=== PATIENT | male | born 1950 | race Caucasian/White ===

== ENCOUNTER 2023-03-17 09:02 | Emergency (ER) | payer MEDICARE, MEDICAID, SELFPAY ==
[2023-03-17] VITALS (35 sets, daily range): BP systolic 112–134; BP diastolic 69–82; PULSE 62–90; RESP 12–25; TEMP 36.3; O2SAT 96–100
--- NOTE | ~2023-03-17 | CT_ITS ---
Non-contrast Head CT History: Seizure Technique: Axial non-contrast imaging of the brain was performed. Dose reduction technique was used on this scan by utilizing automated exposure control and iterative reconstruction technique. The dose -length product (DLP) was 681.00 mGy-cm. Findings: There is no evidence of intracranial hemorrhage, mass lesion, or acute infarct. Cerebellar atrophy noted. The ventricles and subarachnoid spaces are mildly dilated. The calvarium appears no rmal. The visualized paranasal sinuses and mastoid air cells are clear. Impression: No acute abnormality identified. Cerebellar atrophy. This can be related to chronic antiseizure medication. Probable mild generalized atrophy. Reviewed, dictated and finalized at location . AUDITOR Impression: No acute abnormality identified. Cerebellar atrophy. This can be related to chronic antiseizure medication. Probable mild generalized atrophy.
--- NOTE | ~2023-03-17 | XR_ITS ---
XR chest 1V DATE: 03/17/2023 09:53 INDICATION: Seizure TECHNIQUE: AP chest on 03/17/2023 at 0952 hours COMPARISON: None FINDINGS: There is mild elevation of the right leaf of the diaphragm. No pulmonary infiltrate or cons olidation, pleural effusion or pulmonary vascular congestion or pneumothorax is detected. Heart size is likely within normal range considering magnification associated with AP projection. The re is mild aortic unfolding. No hilar or mediastinal enlargement. Bilateral glenohumeral osteoarthritis. Thoracic and lumbar scoliosis. Osteopenia. IMPRESSION: No active cardiopulmonary disease Reviewed, dictated and finalized at location B. IAL EDUCATION SECRETARY
--- NOTE | 2023-03-17 09:28 | ED.SEIZURE ---
HPI - Seizure General Chief Complaint: Seizure Stated Complaint: Seizure Time Seen by Provider: 03/17/23 09:25 Source: patient Mode of arrival: ambulatory Limitations: no limitations History of Present Illness HPI Narrative: Irwin is a 72-year-old male patient presenting to the ER today via EMS with complaints of seizure activity. 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 Takes Tegretol 1000 mg daily. Patient had two seizures at his [facility] this morning. No medications were given per EMS. Patient is not postictal at this time and is alert oriented x3. He denies any headache, visual changes, or dizziness. He denies any pain at all at this time. Related Data Allergies Allergy/AdvReac Type Severity Reaction Status Date / Time No Known Allergies Allergy Verified 03/17/23 09:16 Review of Systems Review of Systems: Pertinent positives per HPI. Patient denies any fever, chills, rash, headache, visual changes, dizziness, cough, runny nose, sore throat, shortness of breath, chest pain, palpitations, nausea, vomiting, diarrhea, constipation, abdominal pain, or any urinary issues. PMFSH Comments At the time of my signature, I reviewed and agree with the nursing past medical, surgical, social, and family history. There is no relevant family history pertinent to the patient complaint. Exam Narrative: General: Well-developed, well nourished, in no apparent distress Head: Normocephalic, atraumatic, nontender to palpation Eyes: Pupils equally round and reactive to light bilaterally, EOM intact, sclera and conjunctive clear, no discharge, lids normal Ears: TMs intact and clear, ear canals clear, no drainage, grossly hearing normal. Nose: Nares patent, no discharge, no inflammation, no sinus tenderness. Mouth: Oropharynx without lesions or masses, good dentition, MMM. Tongue midline, even rise and fall of uvula Neck: Supple, trachea midline, no enlargement of anterior or posterior cervical nodes, no thyroid masses or goiter palpable. Cardio: Regular rate and rhythm, s1 and s2 normal, no murmur appreciated. Resp: Clear to auscultation bilaterally anteriorly and posteriorly, no rhonchi, rales, wheezing or rubs Musculoskeletal: No deformity, non-tender to palpation, grossly normal range of motion, muscle strength strong and equal, peripheral pulse strong, no edema, no cyanosis, normal gait and station Neuro: Alert and oriented x3 with slowed speech (normal for patient), no focal deficits, cranial nerves I through XII intact, muscle strength 3 out of 5, sensation intact bilaterally Course Course Emergency Course: Portions of this record may have been created with voice recognition software. Vital Signs Vital signs: Vital Signs Temperature 36.3 C L 03/17/23 09:02 Pulse Rate 83 03/17/23 09:02 Respiratory Rate 15 03/17/23 09:02 Blood Pressure 119/70 03/17/23 09:02 Pulse Oximetry 96 03/17/23 09:02 Oxygen Delivery Room Air 03/17/23 09:02 Temperature 36.3 C L 03/17/23 09:02 Pulse Rate 67 03/17/23 13:46 Respiratory Rate 14 03/17/23 13:46 Blood Pressure 127/75 03/17/23 13:46 Pulse Oximetry 100 03/17/23 13:16 Oxygen Delivery Room Air 03/17/23 09:14 Vital signs reviewed MDM - Seizure MDM Narrative Medical decision making narrative: At the time of visit patient is resting comfortably on the exam table. Patient appears to be nontoxic. EKG: EKG shows sinus rhythm heart rate 64 beats per minute with a incomplete bundle-branch block without ST elevation or depression. No T-wave inversion. Labs: White blood cell counts 9, H&H 11.2&34.8, platelet count 371, electrolytes-sodium level 140, potassium 4, chloride 104, BUN 27 with creatinine of 1, blood sugar was 120, liver function tests normal. UA turbid with 1+ protein, nitrate positive, 3+ leukocytes, greater than 100 white blood cells with 4+ bacteria. Tegretol level is pending
--- NOTE | 2023-03-17 09:29 | ECG_ITS ---
Measurements Intervals [place] Rate: 64 P: 56 PA: 204 QRS: -3 QRSD: 110 T: 17 QT: 405 QTc: 420 Interpretive Statements SINUS RHYTHM POSSIBLE LEFT ATRIAL ENLARGEMENT BORDERLINE AV CONDUCTION DELAY INCOMPLETE RIGHT BUNDLE BRANCH BLOCK LOW QRS VOLTAGE IN PRECORDIAL LEADS POOR R WAVE PROGRESSION, ANTERIOR LEADS BORDERLINE ECG NO PREVIOUS ECG AVAILABLE FOR COMPARISON Electronically Signed On 03-17-2023 10:30:34 INSURANCE CONSULTANT by Fransisco Culp D.O.
[2023-03-17 10:12] LABS: Basophils Percent Auto 0.3 % (0.2-1.2); Eosinophils Absolute Auto 0.2 K/mm3 (0-0.3); Eosinophils Percent Auto 2.7 % (0-4.4); Hematocrit 34.8 % (42.0-52.0); Hemoglobin 11.2 g/dL (14.0-18.0); Immature Granulocyte Absolute 0.06 K/mm3 (0.00-0.031); Immature Granulocyte Percent A 0.7 % (0-0.5); Lymphocytes Absolute Auto 1.21 K/mm3 (0.9-3.2); Lymphocytes Percent Auto 13.4 % (18.3-44.2); Mean Corpuscular HGB Conc 32.2 g/dl (32-36); Mean Corpuscular Hemoglobin 31.4 pg (26-34); Mean Corpuscular Volume 97.5 fl (80-100); Mean Platelet Volume 8.6 fl (7.4-10.4); Monocytes Absolute Auto 0.6 K/mm3 (0.1-0.6); Monocytes Percent Auto 7.1 % (2.6-8.5); Neutrophils Absolute Auto 6.8 K/mm3 (1.3-6.7); Neutrophils Percent Auto 75.8 % (45.5-73.1); Platelet Count Result 371 k/mm3 (150-375); Red Blood Count 3.57 M/mm3 (4.6-6.20); Red Cell Distribution Width 14.6 % (11.5-14.5)
[2023-03-17 10:24] LABS: Alanine Aminotransferase 22 U/L (6-50); Albumin Level 3.8 g/dL (3.5-5.1); Alkaline Phosphatase 120 U/L (38-126); Anion Gap 7 mmol/L (8-16); Aspartate Amino Transferase 23 U/L (17-59); Bilirubin,Total 0.2 mg/dL (0.2-1.3); Blood Urea Nitrogen 27 mg/dL (9-20); Calcium 8.9 mg/dL (8.4-10.2); Carbon Dioxide 29 mmol/L (22-30); Chloride 104 mmol/L (98-107); Estimated CRCL calculation 63 ml/min; Estimated Glomerular Filt Rate > 60; Glucose 120 mg/dL (65-110); Sodium 140 mmol/L (137-145)
--- NOTE | 2023-03-17 11:08 | PC.NURSE ---
Report given to Татьяна BUSH, all questions answered
[2023-03-17 11:31] LABS: Appearance Urine Turbid (Clear); Bacteria Urine 4+ /hpf; Bilirubin Urine Negative (Negative); Blood Urine Negative (Negative); Color Urine Yellow (Yellow); Glucose Urine UA Negative (Negative); Ketones Urine Negative (Negative); Leukocyte Esterase Ur 3+ LEU/UL (Negative); Nitrate Urine Positive (Negative); Non Pathogenic Casts 0-2; Protein Urine 1+ mg/dL (Negative); RBC Urine 0-2 /hpf (0-2); Specific Grav Ur 1.014 (1.001-1.035); Squamous Epithelial Cell Urine None seen /hpf (Few); Urobilinogen Urine 0.2 mg/dL (<2.0); WBC Urine >100 /hpf; pH Urine 8.5 (5.0-9.0)
[2023-03-17 11:32] LABS: Add Urine Microscopic? YES
[2023-03-20 14:59] LABS: Carbamazepine Tegretol 7.4 mcg/mL (4.0-12.0)
== END 2023-03-17 14:11 | disposition home or self-care (01) ==
PROVIDERS: Emergency Provider Nurse Practitioner Family
DX: G40.909 Epilepsy, unspecified, not intractable, without status epilepticus (principal); N30.01 Acute cystitis with hematuria
CPT/HCPCS: 36415; 70450; 71045; 80053; 80156; 81001; 85025; 87077; 87086; 87186; 93005; 99284

== ENCOUNTER 2023-04-30 12:06 | Emergency (ER) | payer MEDICARE, MEDICAID, SELFPAY ==
--- NOTE | ~2023-04-30 | XR_ITS ---
EXAMINATION: XR shoulder RT min 2V, XR humerus RT DATE: 04/30/2023 15:03 INDICATION: Right shoulder and upper arm pain and limited range of motion post fall 7 days prior TECHNIQUE: 1. AP internally and externally rotated, AP oblique externally rotated and transscapular Y views of t he right shoulder were obtained. 2. Internal and axillary rotated views of the right shoulder were obtained on overlapping proximal an d distal images. COMPARISON: None FINDINGS: Comminuted fractures of the distal right clavicle without evident extension to the acromioclavicular joint. The distal fragment remains normal alignment relative to the acromion with 1.5 cm cephalad dis placement of the clavicle medial to the fracture. Old fractures of the posterolateral right eighth, n inth and 10th ribs. No other fractures identified. Severe right glenohumeral osteoarthritis with remodeling of the humeral head and prominent hypertroph ic osteophytes and loose osteochondral bodies. The elbow joint is poorly profiled the profiled portio n of the ulnotrochlear joint space appears normal. Visualized portions of the right lung are clear. IMPRESSION: 1. Displaced comminuted fracture the distal right clavicle. 2. Severe osteoarthritis at the right glenohumeral joint. Reviewed, dictated and finalized at location A. ENTION RN IMPRESSION: 1. Displaced comminuted fracture the distal right clavicle. 2. Severe osteoarthritis at the right glenohumeral joint.
[2023-04-30 13:13] VITALS: BP 136/68; PULSE 68; RESP 20; TEMP 36.6; O2SAT 100
--- NOTE | 2023-04-30 16:05 | ED.FALL ---
HPI - Fall General Chief Complaint: Fall Stated Complaint: Fall Time Seen by Provider: 04/30/23 16:05 Source: patient Mode of arrival: ambulatory Limitations: no limitations History of Present Illness HPI Narrative: Irwin is a 72-year-old male patient presenting to the ER today with complaints of a ground level fall that occurred last week. Reports that he fell and injured his right shoulder. Patient lives and a group developmentally disabled home. He is brought into the ER today by [facility] Related Data Allergies Allergy/AdvReac Type Severity Reaction Status Date / Time No Known Allergies Allergy Verified 03/17/23 09:16 Review of Systems Review of Systems: Pertinent positives per HPI. Patient denies any fever, chills, rash, headache, visual changes, dizziness, cough, runny nose, sore throat, shortness of breath, chest pain, palpitations, nausea, vomiting, diarrhea, constipation, abdominal pain, or any urinary issues. PMFSH Comments At the time of my signature, I reviewed and agree with the nursing past medical, surgical, social, and family history. There is no relevant family history pertinent to the patient complaint. Exam Narrative: General: Well-developed, well nourished, in no apparent distress Head: Normocephalic, atraumatic. Cardio: Regular rate and rhythm, s1 and s2 normal, no murmur appreciated. Resp: Clear to auscultation bilaterally, no rhonchi, rales, wheezing or rubs. Musculoskeletal: No deformity, old bruising with mild swelling noted to the right shoulder, tender to palpation over the distal clavicle and proximal humerus, pain with any range of motion to the right shoulder, unable to raise shoulder above head, muscle strength strong and equal, peripheral pulse strong, no edema, no cyanosis, sitting in a wheelchair. Course Course Emergency Course: Portions of this record may have been created with voice recognition software. Vital Signs Vital signs: Vital Signs Temperature 36.6 C 04/30/23 13:13 Pulse Rate 68 04/30/23 13:13 Respiratory Rate 04/30/23 13:13 Blood Pressure 136/68 04/30/23 13:13 Pulse Oximetry 100 04/30/23 13:13 Oxygen Delivery Room Air 04/30/23 13:13 Temperature 36.6 C 04/30/23 13:13 Pulse Rate 68 02/15/24 13:13 Respiratory Rate 20 04/30/23 13:13 Blood Pressure 136/68 04/30/23 13:13 Pulse Oximetry 100 04/30/23 13:13 Oxygen Delivery Room Air 04/30/23 13:13 Vital signs reviewed MDM - Fall MDM Narrative Medical decision making narrative: At the time of visit patient is resting comfortably on the exam table. Patient appears to be nontoxic. Diagnostics: X-ray of the right humerus and shoulder were performed and shows a displaced comminuted fracture the distal right clavicle and severe osteoarthritis at the right glenohumeral joint. Plan: Contacted Dr. Mcadams regarding patient's x-rays and he feels as though he can see the patient as an outpatient and recommends shoulder immobilizer or sling. Arm sling was applied. Notified Adult Protective Service hotline as a manadated dance studio manager and was told to contact [facility] since patient is in a developmental penitentiary. Patient fell 1 week ago and was not brought in until today. Supportive measures were discussed with the patient/caregiver and they voiced understanding discharge instructions and agrees to treatment plan. Return precautions reviewed Differential Diagnosis Differential diagnosis: Likely dislocation of shoulder region and other (Clavicle fracture, humeral fracture, rotator cuff injury) Imaging Data Radiologist's impression: ITS Impressions Humerus X-Ray 04/30/23 15:05 IMPRESSION: 1. Displaced comminuted fracture the distal right clavicle. 2. Severe osteoarthritis at the right glenohumeral joint. Shoulder X-Ray 04/30/23 15:05
== END 2023-04-30 18:12 | disposition home or self-care (01) ==
PROVIDERS: Emergency Provider Nurse Practitioner Family; PCP Internal Medicine
DX: S42.031A Displaced fracture of lateral end of right clavicle, initial encounter for closed fracture (principal); M19.011 Primary osteoarthritis, right shoulder; W18.30XA Fall on same level, unspecified, initial encounter
CPT/HCPCS: 73030; 73060; 99284; A4565

== ENCOUNTER 2023-06-10 10:47 | Outpatient (CLI) | payer MEDICARE, MEDICAID, SELFPAY ==
--- NOTE | ~2023-06-10 | XR_ITS ---
XR clavicle RT 06/10/2023 11:08 Indication: Fracture of the right clavicle follow-up Procedure: 2 views right clavicle Comparison: 04/30/2023 Findings: Stable alignment of displaced comminuted extra-articular fracture distal aspect of the righ t clavicle. Severe right glenohumeral joint osteoarthritis. Impression: 1: Stable alignment of displaced extra-articular comminuted fracture distal aspect of the right clavi viviane. No significant callus formation. Reviewed, dictated and finalized at location B. Impression: 1: Stable alignment of displaced extra-articular comminuted fracture distal asp ect of the right clavicle. No significant callus formation.
== END 2023-06-10 10:48 | disposition home or self-care (01) ==
LOC: ANHIMG 10:50
PROVIDERS: PCP Internal Medicine; Visit Provider Orthopaedic Surgery
DX: S42.021A Displaced fracture of shaft of right clavicle, initial encounter for closed fracture (principal); X58.XXXA Exposure to other specified factors, initial encounter
CPT/HCPCS: 73000

== ENCOUNTER 2023-06-13 10:30 | Emergency (ER) | payer MEDICARE, MEDICAID, SELFPAY ==
--- NOTE | ~2023-06-13 | CT_ITS ---
EXAMINATION: CT brain wo con DATE: 06/13/2023 11:30 INDICATION: Fall. Head injury. Left forehead abrasion. TECHNIQUE: Computed tomography (CT) of the head was performed without intravenous contrast. The mA wa s adjusted according to patient size. Iterative reconstruction technique was employed. Exam dose: 60 5.33 mGy-cm total exam DLP. COMPARISON: 03/17/2023 CT brain FINDINGS: Prominent cerebellar atrophy moderately prominent cerebral atrophy are noted. No intracranial mass lesion or hemorrhage or cerebrovascular accident is detected. No midline shift o r mass effect effect. No subdural or epidural hematoma. There is a fluid level in the left maxillary sinus. The included paranasal sinuses are otherwise unre markable. The left mastoid air cells are clear. There are right mastoid effusions. No fracture or bone destruction of the cranial vault. IMPRESSION: No skull fracture or acute intracranial finding Air-fluid level of left maxillary sinus, new since 03/17/2023; if there is concern for possible facial fracture, consider CT maxillofacial scanning Reviewed, dictated and finalized at Location A. Reviewed, dictated and finalized at location A. IMPRESSION: No skull fracture or acute intracranial finding Air-fluid level of left maxillary sinus, new since 03/17/2023; if there is concer n for possible facial fracture, consider CT maxillofacial scanning
--- NOTE | ~2023-06-13 | CT_ITS ---
EXAMINATION: CT cervical spine wo con DATE: 06/13/2023 11:30 INDICATION: Fall. Left forehead abrasion. TECHNIQUE: Computed tomography (CT) of the cervical spine was performed without intravenous contrast. Automated exposure control and iterative reconstruction technique were employed. Exam dose: 386.35 mGy-cm total exam DLP. COMPARISON: None FINDINGS: There are right mastoid effusions. There is extensive soft tissue thickening at the externa l auditory canal on the left. There is reversal cervical curvature which may be due to muscle spasm. C1 and C2 are normally aligned and the odontoid process is intact. No fracture or dislocation or lock ed facet or prevertebral soft tissue swelling. There is 3 mm anterolisthesis at C2-3. There is moderately severe degenerative disc disease at C3-4 and to a greater extent C4-5, C5-6 and C 6-7, with very prominent anterior bridging osteophytes at C4-C7. There is 2.7 mm anterolisthesis at C7-T1. There is prominent degenerative change at the apophyseal joints IMPRESSION: Reversal cervical curvature which may be due to muscle spasm Severe cervical spondylosis; no fracture or dislocation or locked facet or prevertebral soft tissue s welling Reviewed, dictated and finalized at Location A. Reviewed, dictated and finalized at location A. IMPRESSION: Reversal cervical curvature which may be due to muscle spasm Severe cervical spondylosis; no fracture or dislocation or locked facet or prev ertebral soft tissue swelling
[2023-06-13 10:43] VITALS: BP 111/68; PULSE 62; RESP 20; TEMP 36.2; O2SAT 100
[2023-06-13] MEDS: TETANUS,DIPHTHERIA,AC PERTUSSIS ADULT (0.5 ML) BOOSTRIX IM (12:16)
--- NOTE | 2023-06-13 16:51 | ED.FALL ---
HPI - Fall General Chief Complaint: Fall Stated Complaint: fall Time Seen by Provider: 06/13/23 11:09 History of Present Illness HPI Narrative: Patient presents here after mechanical fall, he is denying any complaints at this time. Related Data Home Medications Medication Instructions Recorded Confirmed amlodipine 10 mg tablet 10 mg PO DAILY 05/07/23 06/10/23 ascorbic acid (vitamin C) 500 mg mg PO 05/07/23 06/10/23 capsule bacitracin 500 unit/gram topical 1 applic topical TID 05/07/23 06/10/23 ointment calcium carbonate 300 mg (750 mg) 300 mg PO BID 05/07/23 06/10/23 chewable tablet (Antacid Extra-Strength) carbamazepine 200 mg tablet 200 mg PO Q12H 05/07/23 06/10/23 dextromethorphan 5 mg-guaifenesin 20 ml PO Q4-6H PRN 05/07/23 06/10/23 50 mg/5 mL oral liquid (Robafen DM) diphenhydramine HCl 25 mg tablet 25 mg PO QHS PRN 05/07/23 06/10/23 (Banophen) ferrous sulfate 325 mg (65 mg 325 mg PO DAILY 05/07/23 06/10/23 iron) tablet folic acid 1 mg tablet 1 mg PO DAILY 05/07/23 06/10/23 hydrocortisone 1 % topical cream 1 applic topical BID PRN 05/07/23 06/10/23 ibuprofen 400 mg tablet 400 mg PO TID 05/07/23 06/10/23 lisinopril 5 mg tablet 5 mg PO DAILY 05/07/23 06/10/23 rasagiline 1 mg tablet 1 mg PO DAILY 05/07/23 06/10/23 simvastatin 20 mg tablet 20 mg PO DAILY 05/07/23 06/10/23 vitamin E (dl, acetate) 180 mg 180 mg PO DAILY 05/07/23 06/10/23 (400 unit) capsule Allergies Allergy/AdvReac Type Severity Reaction Status Date / Time No Known Allergies Allergy Verified 06/13/23 10:46 Review of Systems Review of Systems: All systems reviewed & are unremarkable except as noted in HPI and below PMFSH Social History Social History Smoking status: Unknown if ever smoked Do You Feel Safe in your Home?: Yes Lack of Transportation: No Lack of Food: Never True Current Housing: I Have Housing Concerned About Future Housing: No Difficulty Paying Gas/Electric Bills: No Difficulty Paying for Meds: No Currently Unemployed: No Education: High School Diploma/GED Difficulty w/ Childcare or Family Care: No Exam Narrative: EXAMINATION OF ORGAN SYSTEMS/BODY AREAS: Constitutional: Vital signs per nursing GENERAL:[No acute distress, non-toxic appearing.] HEAD: Abrasion to forehead EYES: EOMI, conjunctiva normal ENT: Hearing grossly intact LUNGS: Nonlabored breathing. HEART: [Regular rate and rhythm] ABD: [Soft], [nontender to palpation] EXT: right arm in sling SKIN: [No rashes or lesions.] NEURO: [Alert.] PSYCH: Normal affect Course Vital Signs Vital signs: Vital Signs Temperature 97.1 F L 06/13/23 10:43 Pulse Rate 62 06/13/23 10:43 Respiratory Rate 20 06/13/23 10:43 Blood Pressure 111/68 06/13/23 10:43 Pulse Oximetry 100 06/13/23 10:43 Oxygen Delivery Room Air 06/13/23 10:43 Temperature 97.1 F L 06/13/23 10:43 Pulse Rate 62 06/13/23 10:43 Respiratory Rate 20 06/13/23 10:43 Blood Pressure 111/68 06/13/23 10:43 Pulse Oximetry 100 06/13/23 10:43 Oxygen Delivery Room Air 06/13/23 10:43 MDM - Fall MDM Narrative Medical decision making narrative: patient presents here after witnessed mechanical fall, he has no complaints, he is at his baseline currently, has a small abrasion, given his age I did obtain a CT head and C-spine which I thankfully negative for acute abnormality. I do feel he is stable for discharge at this time with return precautions. Discharge Plan Discharge Clinical Impression: Fall Patient Disposition: NH Nursing Home/Asst Living Condition: Stable Instructions: Antibiotic Form, Head Injury (ED), Abrasion (ED) Additional Instructions: Please follow-up with your primary care doctor, you can always return to the ER if you feel worse. Prescriptions: No Action amlodipine 10 mg tablet 10 mg PO DAILY Antacid Extra-Strength 300 m
== END 2023-06-13 12:27 ==
PROVIDERS: Emergency Provider Emergency Medicine; PCP Internal Medicine
DX: Z04.3 Encounter for examination and observation following other accident (principal); Z23 Encounter for immunization
CPT/HCPCS: 70450; 72125; 90471; 90715; 99284

== ENCOUNTER 2023-07-15 10:46 | Outpatient (CLI) | payer MEDICARE, MEDICAID, SELFPAY ==
--- NOTE | ~2023-07-15 | XR_ITS ---
2 views of the right clavicle CLINICAL HISTORY: Fracture COMPARISON: 06/10/2023 There is oblique fracture of the distal clavicle, with inferior displacement distal fracture fragment by approximately 2 cm, similar in alignment to prior exam. There is advanced degenerative change of the glenohumeral joint. AC joint intact otherwise. Soft tissues are unremarkable. IMPRESSION: Stable significant displaced oblique fracture of the distal clavicle since prior exam. Severe glenohumeral joint degenerative change. Reviewed, dictated and finalized at location . IMPRESSION: Stable significant displaced oblique fracture of the distal clavicle since prio r exam. Severe glenohumeral joint degenerative change.
== END 2023-07-15 10:47 | disposition home or self-care (01) ==
PROVIDERS: PCP Internal Medicine; Visit Provider Orthopaedic Surgery
DX: M19.011 Primary osteoarthritis, right shoulder (principal); S42.001A Fracture of unspecified part of right clavicle, initial encounter for closed fracture; X58.XXXA Exposure to other specified factors, initial encounter
CPT/HCPCS: 73000

== ENCOUNTER 2023-07-22 11:54 | Emergency (ER) | payer MEDICARE, MEDICAID, SELFPAY ==
[2023-07-22 12:32] VITALS: BP 120/84; PULSE 65; RESP 18; TEMP 36.9; O2SAT 100
--- NOTE | 2023-07-22 13:15 | ED.MALEGU ---
HPI - Male Genitourinary General Chief complaint: Urogenital-Male Stated complaint: ?hematuria Time Seen by Provider: 07/22/23 13:15 History of Present Illness HPI Narrative: Patient is a 72 year old male here from [facility] with care worker here with concerns of hematuria. History assisted from caregiver at bedside. Patient denies hematuria, denies dysuria, denies any pain. Careworker yesterday reportedly saw some hematuria. Patient was changed by careworker who is at bedside this morning and she noted no hematuria. Patient denies hematuria himself. Patient initially refused transfer to the ER however caregiver was advised to bring him into the ED for evaluation. Related Data Home Medications Medication Instructions Recorded Confirmed amlodipine 10 mg tablet 10 mg PO DAILY 05/07/23 07/15/23 ascorbic acid (vitamin C) 500 mg mg PO 05/07/23 07/15/23 capsule bacitracin 500 unit/gram topical 1 applic topical TID 05/07/23 07/15/23 ointment calcium carbonate (Antacid 300 mg PO BID 05/07/23 07/15/23 Extra-Strength) carbamazepine 200 mg tablet 200 mg PO Q12H 05/07/23 07/15/23 dextromethorphan 5 mg-guaifenesin 20 ml PO Q4-6H PRN 05/07/23 07/15/23 50 mg/5 mL oral liquid (Robafen DM) diphenhydramine HCl 25 mg tablet 25 mg PO QHS PRN 05/07/23 07/15/23 (Banophen) ferrous sulfate 325 mg (65 mg 325 mg PO DAILY 05/07/23 07/15/23 iron) tablet folic acid 1 mg tablet 1 mg PO DAILY 05/07/23 07/15/23 hydrocortisone 1 % topical cream 1 applic topical BID PRN 05/07/23 07/15/23 ibuprofen 400 mg tablet 400 mg PO TID 05/07/23 07/15/23 lisinopril 5 mg tablet 5 mg PO DAILY 05/07/23 07/15/23 rasagiline 1 mg tablet 1 mg PO DAILY 05/07/23 07/15/23 simvastatin 20 mg tablet 20 mg PO DAILY 05/07/23 07/15/23 vitamin E (dl, acetate) 180 mg 180 mg PO DAILY 05/07/23 07/15/23 (400 unit) capsule Allergies Allergy/AdvReac Type Severity Reaction Status Date / Time No Known Allergies Allergy Verified 06/13/23 10:46 Review of Systems Review of Systems: All systems reviewed & are unremarkable except as noted in HPI and below PMFSH Social History Social History Smoking status: Unknown if ever smoked Do You Feel Safe in your Home?: Yes Lack of Transportation: No Lack of Food: Never True Current Housing: I Have Housing Concerned About Future Housing: No Difficulty Paying Gas/Electric Bills: No Difficulty Paying for Meds: No Currently Unemployed: No Education: High School Diploma/GED Difficulty w/ Childcare or Family Care: No Exam Narrative: GENERAL: Well-appearing, well-nourished, and in no acute distress. HEAD: Normocephalic, atraumatic. EYES: PERRLA and EOMI. ENT: Nares clear. Mucous membranes moist. NECK: Supple. CHEST: Clear to auscultation. No respiratory distress. HEART: Regular rate and rhythm. Normal peripheral pulses. ABDOMEN: Soft, nontender, nondistended. EXTREMITIES: Normal range of motion. No edema. SKIN: Warm, dry, no rash. NEURO: No focal deficits. Alert and oriented x2, at his baseline. PSYCH: Normal mood and affect. Course Course Emergency Course: Chart review performed. Patient here with hematuria. Triage vitals normal. Patient seen and evaluated, has no complaints, denies hematuria. Caregiver at bedside is reluctant to be here, advises patient does not want to be here and that they saw no hematuria this morning when they changed him. Given lack of additional symptoms will do UA. Anticipate discharge. UA shows 51-100 white blood cells, no bacteria, no blood, 2+ leukocyte esterase. Will start on keflex for suspected UTI. The results of pertinent diagnostic studies and exam findings were discussed. The patient?s provisional diagnosis and plan of care were discussed with the patient and present family. The patient and/or present family expressed understanding of the diagnosis and plan. The nurse was instructed to provide wr
[2023-07-22 14:08] LABS: Appearance Urine Clear (Clear); Bacteria Urine None Seen /hpf; Bilirubin Urine Negative (Negative); Blood Urine Negative (Negative); Color Urine Yellow (Yellow); Glucose Urine UA Negative (Negative); Ketones Urine Negative (Negative); Leukocyte Esterase Ur 2+ LEU/UL (Negative); Nitrate Urine Negative (Negative); Non Pathogenic Casts 0-2; Protein Urine Trace mg/dL (Negative); RBC Urine 0-2 /hpf (0-2); Specific Grav Ur 1.015 (1.001-1.035); Squamous Epithelial Cell Urine None Seen /hpf (Few); Urobilinogen Urine 0.2 mg/dL (<2.0); WBC Urine 51-100 /hpf (0-3); pH Urine 7.5 (5.0-9.0)
[2023-07-22 14:14] LABS: Add Urine Microscopic? YES
[2023-07-22 14:52] VITALS: BP 126/69; PULSE 74; RESP 16; TEMP 37; O2SAT 99
== END 2023-07-22 14:53 ==
PROVIDERS: Emergency Provider Student in an Organized Health Care Education/Training Program; PCP Internal Medicine
DX: N39.0 Urinary tract infection, site not specified (principal)
CPT/HCPCS: 81001; 87077; 87086; 87088; 87186; 99283

== ENCOUNTER 2023-12-12 10:44 | Emergency (ER) | payer MEDICARE, MEDICAID, SELFPAY ==
--- NOTE | ~2023-12-12 | CT_ITS ---
EXAMINATION: CT facial & cervical spine wo DATE: 12/12/2023 11:17 INDICATION: Status post fall. Facial and neck pain. TECHNIQUE: Computed tomography (CT) of the maxillofacial region and cervical spine was performed with out intravenous contrast. The dose-length product (DLP) was 413.56 mGy-cm. Automated exposure control and iterative reconstruction technique were employed. COMPARISON: None FINDINGS: MAXILLOFACIAL CT: Mild mucosal thickening of the maxillary sinuses. Rightward nasal septal deviation. Mild degenerative changes of the temporomandibular joints. No orbital fractures. CERVICAL SPINE CT: There is reversal of cervical lordosis. There is degenerative anterolisthesis at C2-3 and C7-T1 secon pao to facet hypertrophy. There is disc narrowing at all cervical spine levels with prominent ventra l osteophytes at C3-4 through C6-7. There is severe multilevel uncinate and facet hypertrophy. Odonto id process is normal craniovertebral junction within normal limits. No evidence for perched facet. IMPRESSION: 1. Severe cervical spondylosis. No acute fracture. Reviewed, dictated and finalized at location B.
--- NOTE | ~2023-12-12 | CT_ITS ---
EXAMINATION: CT brain wo con DATE: 12/12/2023 11:17 INDICATION: Status post fall. Head injury. TECHNIQUE: Computed tomography (CT) of the head was performed without intravenous contrast. The dose- length product was 605.33 mGy-cm. Automated exposure control and iterative reconstruction technique w ere employed. COMPARISON: CT dated 06/13/2023 FINDINGS: Generalized atrophy. Prominent cisterna magna. Cerebellar atrophy. Chronic right cerebellar infarction. There is intracranial atherosclerosis. No acute infarction, mass or mass effect. Paranas al sinuses and mastoids are pneumatized. IMPRESSION: 1. No acute intracranial abnormality. Reviewed, dictated and finalized at location B.
[2023-12-12 11:23] VITALS: BP 133/75; PULSE 66; RESP 17; TEMP 37.1; O2SAT 96
--- NOTE | 2023-12-12 11:23 | ED.GENADULT ---
HPI - General Adult General Chief complaint: Head Injury Stated complaint: fall out of wheelchair Time Seen by Provider: 12/12/23 11:03 History of Present Illness HPI narrative: 73-year-old male present to the emergency department for evaluation for a fall from his wheelchair. Patient does have a laceration to his forehead but denies any pain or injury. Patient is A&O x1 at baseline. Patient does has have history Parkinson's disease. Patient arrives to the emergency department with his caregiver. Caregiver states this is his normal baseline. Caregiver did confirm that the patient did have a fall from his wheelchair. Related Data Home Medications Medication Instructions Recorded Confirmed amlodipine 10 mg tablet 10 mg PO DAILY 05/07/23 07/15/23 ascorbic acid (vitamin C) 500 mg mg PO 05/07/23 07/15/23 capsule bacitracin 500 unit/gram topical 1 applic topical TID 05/07/23 07/15/23 ointment calcium carbonate (Antacid 300 mg PO BID 05/07/23 07/15/23 Extra-Strength) carbamazepine 200 mg tablet 200 mg PO Q12H 05/07/23 07/15/23 dextromethorphan 5 mg-guaifenesin 20 ml PO Q4-6H PRN 05/07/23 07/15/23 50 mg/5 mL oral liquid (Robafen DM) diphenhydramine HCl 25 mg tablet 25 mg PO QHS PRN 05/07/23 07/15/23 (Banophen) ferrous sulfate 325 mg (65 mg 325 mg PO DAILY 05/07/23 07/15/23 iron) tablet folic acid 1 mg tablet 1 mg PO DAILY 05/07/23 07/15/23 hydrocortisone 1 % topical cream 1 applic topical BID PRN 05/07/23 07/15/23 ibuprofen 400 mg tablet 400 mg PO TID 05/07/23 07/15/23 lisinopril 5 mg tablet 5 mg PO DAILY 05/07/23 07/15/23 rasagiline 1 mg tablet 1 mg PO DAILY 05/07/23 07/15/23 simvastatin 20 mg tablet 20 mg PO DAILY 05/07/23 07/15/23 vitamin E (dl, acetate) 180 mg 180 mg PO DAILY 05/07/23 07/15/23 (400 unit) capsule Allergies Allergy/AdvReac Type Severity Reaction Status Date / Time No Known Allergies Allergy Verified 12/12/23 10:45 Review of Systems Review of Systems: All systems reviewed & are unremarkable except as noted in HPI and below PMFSH Social History Social History (Reviewed 06/10/23 @ 13:32 by Yolanda Hewitt [facility]) Smoking status: Unknown if ever smoked Do You Feel Safe in your Home?: Yes Lack of Transportation: No Lack of Food: Never True Current Housing: I Have Housing Concerned About Future Housing: No Difficulty Paying Gas/Electric Bills: No Difficulty Paying for Meds: No Currently Unemployed: No Education: High School Diploma/GED Difficulty w/ Childcare or Family Care: No Exam Narrative: APPEARANCE: Well appearing, no pain, no distress, well-nourished. HEAD: normocephalic, 3 cm laceration to the center of forehead. EYES: PERRLA/EOMI, conjunctivae clear. NOSE: Normal no drainage EARS:TMS clear with good light reflex. THROAT: Pharynx clear, no exudate. NECK: Supple. No adenopathy, no masses. RESPIRATORY: Airway patent, respirations nonlabored. Clear to auscultation bilaterally, no rales, rhonchi, wheezing. CARDIOVASCULAR: Regular rate and rhythm without murmurs rubs or gallops. ABDOMINAL: Soft, nontender, nondistended, normal bowel sounds MUSCULOSKELETAL: Moves all extremities. Strength/ROM intact, No edema, No calf tenderness. NEURO: Alert. Cranial nerves II through XII intact. Good gait. Good coordination SKIN: Forehead laceration Course Course Emergency Course: Laceration was repaired and patient was discharged back to his care facility. Vital Signs Vital signs: Vital Signs Temperature 98.7 F 12/12/23 11:23 Pulse Rate 66 12/12/23 11:23 Respiratory Rate 17 12/12/23 11:23 Blood Pressure 133/75 12/12/23 11:23 Pulse Oximetry 96 12/12/23 11:23 Oxygen Delivery Room Air 12/12/23 11:23 Temperature 98.7 F 12/12/23 12:37 Pulse Rate 75 12/12/23 12:34 Respiratory Rate 18 12/12/23 12:34 Blood Pressure 133/75 12/12/23 11:23 Pulse Oximetry 100 12/12/23 12:35 Oxygen Delivery Room Air 12/12/23 12:35
[2023-12-12] MEDS: TETANUS,DIPHTHERIA,AC PERTUSSIS ADULT (0.5 ML) BOOSTRIX IM (12:22)
[2023-12-12 12:34] VITALS: PULSE 75; RESP 18; TEMP 36.9; O2SAT 100
[2023-12-12 12:35] VITALS: O2SAT 100
[2023-12-12 12:37] VITALS: TEMP 37.1
== END 2023-12-12 12:21 ==
PROVIDERS: Emergency Provider Emergency Medicine; PCP Internal Medicine
DX: S01.81XA Laceration without foreign body of other part of head, initial encounter (principal); Z23 Encounter for immunization; G20.A1 Parkinson's disease without dyskinesia, without mention of fluctuations; W05.0XXA Fall from non-moving wheelchair, initial encounter
CPT/HCPCS: 12013; 70450; 70486; 72125; 90471; 90715; 99284

== ENCOUNTER 2024-05-09 19:18 | Emergency (ER) | payer MEDICARE, MEDICAID, SELFPAY ==
--- NOTE | ~2024-05-09 | US_ITS ---
Duplex Sonography of the right extremity: Indication: DVT Findings: Sagittal and transverse B-mode images as well as color-flow imaging were performed on the r ight femoral and popliteal veins. B-mode examination was done without and with compression in the tr ansverse plane. There is good visualization of the common femoral, proximal profunda femoral, superf icial femoral, greater saphenous, and popliteal veins. Normal flow was seen on color-flow imaging. N ormal compressibility was demonstrated. Visualized calf veins are also patent. Impression: No evidence of deep vein thrombosis involving the right lower extremity. Reviewed, dictated and finalized at location M. T ROCK HANGER Impression: No evidence of deep vein thrombosis involving the right lower extremity.
--- OUTSIDE RECORDS SUMMARY | 2024-05-09 19:25 | XMS_ITS | Encounter Summary ---
Author Organization [facility] Address [address] [place] [address] Phone Care Team Providers Care Chief Scientist Name Role Phone Mariya Mcnair PAC Primary Care Pro vider Essence Wallace LEADERSHIP PROGRAM ASSOCIATE, COTA Unavailable + [phone] Sourav Hamm MD Unavailable [phone] Reason for Visit * Reason Onset Date Comments Home Health Admission 04/15/2023 Encounter Details Date Type Department Care Team (Late st Contact Info) Description 04/15/2023 Telephone [facility] [address] [place] [address] Zunilda Up, PT [place] Home Health Admission Social History Tobacco Use Types Packs/Day Years Used Date Smoking Tobacco: Never Smokeless Tobacco: Never Alcohol Use Standard Drinks/Week Comments Not Currently 0 (1 standard drink = 0.6 oz pur e alcohol) Sexually Active Control Partners Comments Not Currently Sex and Gender Information Value Date Recorded Sex Assigned at Not on file Legal Sex Male 10:29 AM GROUND OPERATIONS SUPERVISOR Gender Identity Not on file Sexual Orientation Not on file documented as of this encounter Miscellaneous Notes * Telephone Encounter - Zunilda Up, PT - 04/15/2023 4:10 PM CST Patient was admitted to home health on this date. Will you please follow and sign orders for PT/OT? Please advise. [place] OPERATIONS SUPERVISOR documented in this encounter Plan of Treatment Upcoming Encounters Date Type Department Care Team (Late st Contact Info) Description 06/15/2024 1:45 PM CDT Office Visit [facility] Medical [facility] - Internal Medicine - [place] [address] [id number] Mariya Mcnair, PAC [address] [facility] [place] [address] 02/23/2025 10:00 AM GROUND OPERATIONS SUPERVISOR Office Visit [facility] Neurology [facility] [address] [facility] [place] [address] Essence Wallace APRN, COTA [address] [place] [address] documented as of this encounter Visit Diagnoses Not on filedocumented in this encounter Care Teams Chief Scientist Relationship Specialty Start Date End Date Mariya Mcnair, PAC [address] [place] [address] PCP - General Physician Retail Associate 02/26/23 Essence Wallace APRN, COTA [address] [place] [address] Nurse Practitioner Advanced Practice Nurse 05/26/23 Sourav Hamm MD [address] [place] [address] Consulting Physician Neurology 02/25/24 documented as of this encounter
--- OUTSIDE RECORDS SUMMARY | 2024-05-09 19:25 | XMS_ITS | Clinical Summary ---
Author Organization [facility] Address [address] [place] [address] Care Team Providers Care Pipe Recovery Specialist Name Role Phone Mariya Mcnair Primary Care Pro vider Essence Wallace APRN, FIELD ARTILLERY OFFICER Unavailable [phone] Sourav Hamm MD Unavailable [phone] Allergies No known active allergies Medications amLODIPine (NORVASC) 10 MG Tablet Take 1 Tablet by mouth daily. 6 Active ferrous sulfate 325 (65 Fe) MG Tablet Take 1 Tablet by mouth 2 times daily. 2 Active folic acid (FOLVITE) 1 MG Tablet Take 1 Tablet by mouth daily. 6 Active lisinopril (PRINIVIL, ZESTRIL) 5 MG Tablet Take 1 Tablet by mouth daily. 6 Active polyethylene glycol (GLYCOLAX) 17 GM/SCOOP Powder Take 17 g by mouth. 2 Active rasagiline mesylate (AZILECT) 1 MG Tablet Take 1 Tablet by mouth daily. 6 Active simvastatin (ZOCOR) 20 MG Tablet Take 20 mg by mouth. 2 Active Ascorbic Acid (VITAMIN C PO) Take 500 mg by mouth daily. Active VITAMIN E PO Take 180 mg by mouth daily. Active calcium carbonate (Tums Extra Strength 750) 750 MG Chewable Tablet Take 750 mg by mouth daily. Active Cholecalciferol (Vitamin D) 50 MCG (2000 UT) Capsule Take one capsule by mouth daily 90 Capsule 4 Active Additional Information Patient not taking.Reported on 02/25/2024 ascorbic acid 500 MG Tablet Take 1 Tablet by mouth daily. 30 Tablet 4 Active Additional Information Patient not taking.Reported on 02/25/2024 diphenhydrAMINE (Banophen) 25 MG Tablet Take 25 mg by mouth every 6 hours as needed. Active Misc. Devices Misc Supply and instructions: 1 Each Active ibuprofen (MOTRIN) 400 MG Tablet Take 1 Tablet by mouth 2 times daily as needed for Mild or more severe pain. 60 Tablet 6 4 Active Additional Information Patient not taking.Reported on 02/25/2024 cephALEXin (KEFLEX) 500 MG Capsule Take 500 mg by mouth 4 times daily. RX [id number] Active carBAMazepine (TEGretol) 200 MG Tablet Take 1.5 Tablets by mouth 2 times daily. 360 Tablet 1 4 Active Active Problems Problem Noted Date Diagnosed Date Iron deficiency anemia 02/23/2023 Other hyperlipidemia 02/23/2023 Intellectual disability 02/23/2023 Parkinson disease 02/23/2023 Seizures 02/23/2023 Primary hypertension 02/23/2023 Osteoporosis 02/23/2023 Encounters Date Type Department Care Team Description 02/25/2024 10:00 AM CLEANER Office Visit [facility] Neurology [facility] [address] [place] [address] Sourav Hamm MD Seizures (HCC) (Primary Dx); Parkinson's disease without dyskinesia or fluctuating manifestations (HCC); Primary hypertension; Intellectual disability Discharge Disposition: Discharged to home or Selfcare 02/25/2024 Travel from Last 3 Months Social History Tobacco Use Types Packs/Day Years Used Date Smoking Tobacco: Never Smokeless Tobacco: Never Tobacco Cessation:Counseling Given: No Alcohol Use Standard Drinks/Week Comments Not Currently 0 (1 standard drink = 0.6 oz pur e alcohol) Sexually Active Control Partners Comments Not Currently Sex and Gender Information Value Date Recorded Sex Assigned at Not on file Legal Sex Male 10:29 AM CLEANER Gender Identity Not on file Sexual Orientation Not on file Last Filed Vital Signs Vital Sign Reading Time Taken Comments Blood Pressure 128/78 02/25/2024 10:14 AM CLEANER Pulse 67 02/25/2024 10:14 AM CLEANER Temperature 36.4 C (97.5 F) 02/25/2024 10:14 AM CLEANER Respiratory Rate 16 02/25/2024 10:14 AM CLEANER Oxygen Saturation 100% 02/25/2024 10:14 AM CLEANER Inhaled Oxygen Concentration - - Weight 84.4 kg (186 lb) 02/25/2024 10:14 AM CLEANER Height 172.7 cm (5' 8 ) 02/25/2024 10:14 AM CLEANER Body Mass Index 28.28 02/25/2024 10:14 AM CLEANER Plan of Treatment Upcoming Encounters Date Type Department Care Team (Late st Contact Info) Description 06/15/2024 1:45 PM CDT Office Visit [facility] - Internal Medicine - [place] [address] [place] [address] Mariya Mcnair, PAC [address] [place] [address] 02/23/2025 10:00 AM CLEANER Office Visit [facility] Medical [facility] - Neurology - [place] [address] [place] [address] Essence Wallace, REFRIGERATION SYSTEM INSTALLER, FIELD ARTILLERY OFFICER [address] [place] [address] Health Maintenance Due Date Last Done Comments Hepatitis C Virus (HCV) Screening 1950 Colonoscopy 09/08/1995 Immunochemical Fecal Occult Blood 2000 Pneumococcal Immunization (50+ years) (1 of 1 - PCV) 2000 Zoster Immunization (1 of 2) 2000 Colorectal Cancer Screening 03/06/2023 SARS-COV-2 Immunization ( - season) 2024 01/11/2024, 06/12/2022, 05/21/2022 Respiratory Syncytial Virus (RSV) Immunization (Adult) (1 - 1-dose 75+ series) 2025 Cologuard 03/05/2026 03/05/2023 DTaP/Tdap/Td Immunization Discontinued 2023, 06/13/2023, 08/05/2022, Additional history exists TdaP Immunization Completed 12/12/2023, , 08/05/2022, Additional history exists Influenza Immunization Completed 01/11/2024 PSA Discussion Discontinued 04/05/2024, 04/05/2024 Hepatitis B Immunization Aged Out No longer eligible based on patient's age to complete this topic Meningococcal Immunization (ACWY) Aged Out No longer eligible based on patient's age to complete this topic Rotavirus Immunization Aged Out No lo nger eligible based on patient's age to complete this topic Procedures Procedure Name Priority Date/Time Associated Diagnosis Comments PSA SCREEN 04/05/2024 12:00 AM CLEANER PSA FREE & TOTAL 04/05/2024 12:0 0 AM CLEANER LIPID PANEL 04/05/2024 12:00 AM CLEANER THYROID STIMULATING HORMONE (TSH) 04/05/2024 12:00 AM CLEANER CMP (COMPREHENSIVE METABOLIC PANEL) 04/05/2024 12:00 AM CLEANER COMPLETE BLOOD COUNT (CBC) WITH DIFF 04/05/2024 12:00 AM CLEANER COLOGUARD Routine 03/05/2023 8:10 AM CLEANER Screening for colon cancer from Last 3 Months or Most Recently Relevant to Health Maintenance Results * THYROID STIMULATING HORMONE (TSH) (04/05/2024 12:00 AM CLEANER) 04/05/2024 us Provider Scan CHEMISTRY ORDERABLES Final Resul t SCAN * PSA FREE & TOTAL (04/05/2024 12:00 AM CLEANER) Prostatic Specific Antigen, Free 1.8 SCAN 04/05/2024 us Provider Scan CHEMISTRY ORDERABLES Final Resul t SCAN * PSA SCREEN (04/05/2024 12:00 AM CLEANER) PSA SCREEN, TOTAL 1.8 SCAN 04/05/2024 us Provider Scan CHEMISTRY ORDERABLES Final Resul t Performing Organization Address City/[facility] Co de Phone Number SCAN * LIPID PANEL (04/05/2024 12:00 AM CLEANER) [facility] CHOLESTEROL 134 SCAN HDL CHOLESTEROL 53 SCAN LDL 66 SCAN 04/05/2024 us Provider Scan CHEMISTRY ORDERABLES Final Resul t Performing Organization Address City/[facility]/ZIP Co de Phone Number SCAN * CMP (COMPREHENSIVE METABOLIC PANEL) (04/05/2024 12:00 AM CLEANER) 04/05/2024 us Provider Scan CHEMISTRY ORDERABLES Final Resul t SCAN * COMPLETE BLOOD COUNT (CBC) WITH DIFF (04/05/2024 12:00 AM CLEANER) 04/05/2024 us Provider Scan HEMATOLOGY ORDERABLES Final Resu lt Performing Organization Address [facility] Co de Phone Number SCAN * COLOGUARD (03/05/2023 8:10 AM CLEANER) [facility] Cologuard Negative Negative [facility] Comment: NEGATIVE TEST RESULT. A negative Cologuard result indicates a low likelihood that a colorectal cancer (CRC) or advanced adenoma (adenomatous polyps with more advanced pre-malignant features) is present. The chance that a person with a negative Cologuard test has a colorectal cancer is less than 1 in 1500 (negative predictive value >99.9%) or has an advanced adenoma is less than 5.3% (negative predictive value 94.7%). These data are based on a prospective cross-sectional study of 10,000 individuals at average risk for colorectal cancer who were screened with both Cologuard and colonoscopy. (Melanie Kraft. ryan al, N Engl J Med 2014;370(14):6986-5290) The normal value (reference range) for this assay is negative. COLOGUARD RE-SCREENING RECOMMENDATION: Periodic colorectal cancer screening is an important part of preventive healthcare for asymptomatic individuals at average risk for colorectal cancer. Following a negative Cologuard result, the [place] [employer] Society and U.S. Multi-Society Task Force screening guidelines recommend a Cologuard re-screening interval of 3 years. References: [place] [employer] Guideline for Colorectal Cancer Screening: https://www.cancer.org/cancer/matyg-pstlnw-jozeek/cpgnnebog-dhpykjbvs-sakincj/ acs-recommendations.html.; Manjinder CURIEL, Sandy BONILLA, Fabrizio BettencourtK, Colorectal Cancer Screening: Recommendations for Physicians and Patients from the U.S. Multi-Society Task Force on Colorectal Cancer Screening , Am J Gastroenterology 2017; 112:7427-8419. TEST DESCRIPTION: Composite algorithmic analysis of stool DNA-biomarkers with hemoglobin immunoassay. Quantitative values of individual biomarkers are not reportable and are not associated with individual biomarker result reference ranges. Cologuard is intended for colorectal cancer screening of adults of either sex, 45 years or older, who are at average-risk for colorectal cancer (CRC). Cologuard has been approved for use by the U.S. FDA. The performance of Cologuard was established in a cross sectional study of average-risk adults aged 50-84. Cologuard performance in patients ages 45 to 49 years was estimated by sub-group analysis of near-age groups. Colonoscopies performed for a positive result may find as the most clinically significant lesion: colorectal cancer [4.0%], advanced adenoma (including sessile serrated polyps greater than or equal to 1cm diameter) [20%] or non- advanced adenoma [31%]; or no colorectal neoplasia [45%]. These estimates are derived from a prospective cross-sectional screening study of 10,000 individuals at average risk for colorectal cancer who were screened with both Cologuard and colonoscopy. (Melanie Hyde, N Engl J Med 2014;370(14):9598-1321.) Cologuard may produce a false negative or false positive result (no colorectal cancer or precancerous polyp present at colonoscopy follow up). A negative Cologuard test result does not guarantee the absence of CRC or advanced adenoma (pre-cancer). The current Cologuard screening interval is every 3 years. ([place] [employer] Society and U.S. Multi-Society Task Force). Cologuard performance data in a 10,000 patient pivotal study using colonoscopy as the reference method can be accessed at the following location: www.Iwebalize/results. Additional description of the Cologuard test process, warnings and precautions can be found at www.cologuard.com. Stool 03/05/2023 8:10 AM CLEANER 03/07/2023 3:15 PM CLEANER Mariya Mcnair PAC BODY FLUIDS & STO OLS ORDERABLES Final Result [employer], [facility] [address] [place] [address], [employer] [address] [place] [address] from Last 3 Months or Most Recently Relevant to Health Maintenance Insurance [place] Advance Directives Documents on File Type Date Recorded Patient Traveling Engineer Expl anation Power of Canal Boat Operator for Health Care 05/04/2023 8:17 AM POA-HC, 07/14/2022 * Full Code (Latest Code Status on File) Date Activated Date Inactivated Comments 04/26/2023 10:52 AM Care Teams Pipe Recovery Specialist Relationship Specialty Start Date End Date Mariya Mcnair, [place] [address] [place] [address] PCP - General Physician Expeditionary Fighting Vehicle Crewman 02/26/23 Essence Wallace, REFRIGERATION SYSTEM INSTALLER, FIELD ARTILLERY OFFICER [address] [place] [address] Nurse Practitioner Advanced Practice Nurse 05/26/23 Sourav Hamm MD [address] [place] [address] Consulting Physician Neurology 02/25/24
--- OUTSIDE RECORDS SUMMARY | 2024-05-09 19:25 | XMS_ITS | Encounter Summary ---
Author Organization [facility] Address [address] [place] [address] Phone Care Team Providers Care Emergency Medical Service Coordinator Name Role Phone Mariya Mcnair PAC Primary Care Pro vider Essence Wallace APRN, ASSEMBLER [employer] Unavailable + [phone] Sourav Hamm MD Unavailable [phone] Reason for Visit * Reason Onset Date Comments Need Order 05/07/2023 Encounter Details Date Type Department Care Team (Late st Contact Info) Description 05/07/2023 [facility] [address] [place] [address] Zunilda Up, PT [place] Need Order Social History Tobacco Use Types Packs/Day Years Used Date Smoking Tobacco: Never Smokeless Tobacco: Never Alcohol Use Standard Drinks/Week Comments Not Currently 0 (1 standard drink = 0.6 oz pur e alcohol) Sexually Active Control Partners Comments Not Currently Sex and Gender Information Value Date Recorded Sex Assigned at Not on file Legal Sex Male 10:29 AM CYLINDER GRINDER Gender Identity Not on file Sexual Orientation Not on file documented as of this encounter Miscellaneous Notes * Telephone Encounter - Zunilda Up, PT - 05/07/2023 4:40 PM CST Patient had a recent fall and has a clavicle fracture and is needing more assist for transfers. Could you please email an order to Neela Montiel (greenhouse worker) for a sit to stand. Email: Neela Mahan < > She said she would be able to get this for him with an order, thank you Zunilda Up PT [phone] Thank you. Contact me with any questions. NDER GRINDER documented in this encounter Plan of Treatment Upcoming Encounters Date Type Department Care Team (Late st Contact Info) Description 06/15/2024 1:45 PM CDT Office Visit [facility] Internal Medicine [facility] [address] [place] [id number] Mariya Mcnair, PAC [address] [place] [address] 02/23/2025 10:00 AM CYLINDER GRINDER Office [facility] Neurology [facility] [address] [place] [phone] Essence Wallace APRN, ASSEMBLER [employer] [address] [place] [address] documented as of this encounter Visit Diagnoses Not on filedocumented in this encounter Care Teams Emergency Medical Service Coordinator Relationship Specialty Start Date End Date Mariya Mcnair, PAC [address] [place] [address] PCP - General Physician Battery Mechanic 02/26/23 Essence Wallace APRN, ASSEMBLER [employer] [address] [facility] [place] [address] Nurse Practitioner Advanced Practice Nurse 05/26/23 Sourav Hamm MD [address] [facility] [place] [address] Consulting Physician Neurology 02/25/24 documented as of this encounter
[2024-05-09 19:26] VITALS: BP 143/78; PULSE 93; RESP 20; TEMP 36.8; O2SAT 99
[2024-05-09 20:18] VITALS: BP 136/88; PULSE 88; RESP 14; O2SAT 99
[2024-05-10] VITALS (22 sets, daily range): BP systolic 132–147; BP diastolic 72–93; PULSE 70–90; RESP 13–118; O2SAT 98–100
--- NOTE | 2024-05-10 02:20 | ED.EXTPRO ---
HPI - Extremity Problem General Chief complaint: Extremity Problem,Nontraumatic <Timmy Rdz MD - Last Filed: 05/12/24 07:21> Stated complaint: edema to right lower leg <Timmy Rdz MD - Last Filed: 05/12/24 07:21> Time Seen by Provider: 05/10/24 02:05 <Timmy Rdz MD - Last Filed: 05/12/24 07:21> History of Present Illness HPI Narrative: 73-year-old male with a past medical history including mental retardation, disability with wheelchair-bound status. Patient presents to the emergency department for evaluation of right lower extremity swelling. His caregiver at the long-term noted that he was having some swelling in his right lower extremity that was new since couple days ago. Patient denies any falls or injuries. Caregiver states he has not had any falls or injuries or any other concerns such as infection. Patient states that his leg is painful. No history of DVT or PE to his knowledge. Not any kind anticoagulation on review of the EMR. Denies any neuropathy or weakness the limb. He is able to move his extremities but is still wheelchair bound given his debility. No symptoms such as chest pain, shortness a breath, fever or chills. <Timmy Rdz MD - Last Filed: 05/12/24 07:21> Related Data Home medications: Home Medications ?Medication ?Instructions ?Recorded ?Confirmed ?Last Taken ?Type amlodipine 10 mg tablet 10 mg PO DAILY 05/07/23 07/15/23 Unknown History ascorbic acid (vitamin C) 500 mg mg PO 05/07/23 07/15/23 Unknown History capsule bacitracin 500 unit/gram topical 1 applic topical TID 05/07/23 07/15/23 Unknown History ointment calcium carbonate (Antacid 300 mg PO BID 05/07/23 07/15/23 Unknown History Extra-Strength) carbamazepine 200 mg tablet 200 mg PO Q12H 05/07/23 07/15/23 Unknown History dextromethorphan 5 mg-guaifenesin 20 ml PO Q4-6H PRN 05/07/23 07/15/23 Unknown History 50 mg/5 mL oral liquid (Robafen DM) diphenhydramine HCl 25 mg tablet 25 mg PO QHS PRN 05/07/23 07/15/23 Unknown History (Banophen) ferrous sulfate 325 mg (65 mg 325 mg PO DAILY 05/07/23 07/15/23 Unknown History iron) tablet folic acid 1 mg tablet 1 mg PO DAILY 05/07/23 07/15/23 Unknown History hydrocortisone 1 % topical cream 1 applic topical BID PRN 05/07/23 07/15/23 Unknown History ibuprofen 400 mg tablet 400 mg PO TID 05/07/23 07/15/23 Unknown History lisinopril 5 mg tablet 5 mg PO DAILY 05/07/23 07/15/23 Unknown History rasagiline 1 mg tablet 1 mg PO DAILY 05/07/23 07/15/23 Unknown History simvastatin 20 mg tablet 20 mg PO DAILY 05/07/23 07/15/23 Unknown History vitamin E (dl, acetate) 180 mg 180 mg PO DAILY 05/07/23 07/15/23 Unknown History (400 unit) capsule <Timmy Rdz MD - Last Filed: 05/12/24 07:21> Allergies/Adverse reactions: Allergies Allergy/AdvReac Type Severity Reaction Status Date / Time No Known Allergies Allergy Verified 05/09/24 19:36 <Timmy Rdz MD - Last Filed: 05/12/24 07:21> Review of Systems Review of Systems: As reviewed above in HPI <Timmy Rdz MD - Last Filed: 05/12/24 07:21> PMFSH Social History Social History: Social History Smoking status: Unknown if ever smoked Do You Feel Safe in your Home?: Yes Lack of Transportation: No Lack of Food: Never True Current Housing: I Have Housing Concerned About Future Housing: No Difficulty Paying Gas/Electric Bills: No Difficulty Paying for Meds: No Currently Unemployed: No Education: High School Diploma/GED Difficulty w/ Childcare or Family Care: No <Timmy Rdz MD - Last Filed: 05/12/24 07:21> Exam Narrative: GENERAL: [Well-appearing, well-nourished, and in no acute distress.] HEAD: [Normocephalic, atraumatic.] EYES: [PERRLA and EOMI.] ENT: Nares clear, no rhinorrhea or epistaxis. Mucous membranes moist. NECK: Supple. CHEST: [Clear to auscultation. No respiratory distress.] HEART: [Regular rate and rhythm]. No murmur heard. [Normal peripheral pulses.] ABDOMEN: [Soft, nondistended], [nontender], [No rigidity or guarding] EXTREMITIES: Right lower extremity is markedly swollen compared to the left, 2+ edema on the right ankle and calf compared to the left without any edema. Some mild overlying redness without any warmth or significant tenderness. No weepage of purulent drainage. No wounds. No venous stasis changes. He is able to move his extremities and hold extensor mechanism of his right leg, plantar and dorsiflexion of the ankle and flexion and extension of the knee are intact. Symmetric strength between the both legs. SKIN: Warm, dry, no rash. NEURO: [No focal deficits]. Alert and oriented x1 which is his baseline given his history of mental retardation PSYCH: [Normal mood and affect.] <Timmy Rdz MD - Last Filed: 05/12/24 07:21> Course Vital Signs Vital signs: Vital Signs Temperature 36.8 C 05/09/24 19:26 Pulse Rate 93 05/09/24 19:26 Respiratory Rate 20 05/09/24 19:26 Blood Pressure 143/78 H 05/09/24 19:26 Pulse Oximetry 99 05/09/24 19:26 Oxygen Delivery Room Air 05/09/24 19:26 Temperature 36.8 C 05/09/24 19:26 Pulse Rate 80 05/10/24 07:46 Respiratory Rate 17 05/10/24 07:46 Blood Pressure 132/72 05/10/24 07:46 Pulse Oximetry 100 05/10/24 07:46 Oxygen Delivery Room Air 05/09/24 19:26 <Timmy Rdz MD - Last Filed: 05/12/24 07:21> Vital Signs Temperature 36.8 C 05/09/24 19:26 Pulse Rate 93 05/09/24 19:26 Respiratory Rate 20 05/09/24 19:26 Blood Pressure 143/78 H 05/09/24 19:26 Pulse Oximetry 99 05/09/24 19:26 Oxygen Delivery Room Air 05/09/24 19:26 Temperature 36.8 C 05/09/24 19:26 Pulse Rate 80 05/10/24 07:46 Respiratory Rate 17 05/10/24 07:46 Blood Pressure 132/72 05/10/24 07:46 Pulse Oximetry 100 05/10/24 07:46 Oxygen Delivery Room Air 05/09/24 19:26 <Herve Tapia MD - Last Filed: 05/10/24 08:29> MDM - Extremity (Nontraumatic) MDM Narrative Medical decision making narrative: 73-year-old male with history of mental retardation, debility with wheelchair-bound status. Presents with right lower extremity pain and swelling which was atraumatic. Denies any falls or injuries. He has marked swelling and edema of his right leg compared to his left. No history of DVT or PE. He has 2+ palpable pulses, warm extremity, no overlying skin changes aside from some mild redness. No signs of cellulitis or tissue infection. No evidence of trauma. Suspicion presently is for potential thromboembolic event such as DVT, asymmetric lymphedema, dependent edema are less likely. He has no risk factors for heart failure and does not have any asymmetric swelling on the left side during the other symptoms such as chest pain, shortness a breath, fever or chills. Ultrasound is currently not available in the building, CBC, CMP, PT, PTT labs were ordered to assess. Discussed with the caregiver at bedside nauseous going forward which include administration of Lovenox and returning to get outpatient ultrasound, waiting till the morning for ultrasound did show up at 7:00 a.m., admission to the hospital for observation and ultrasound imaging. Will evaluate after labs. Laboratory studies show some mild leukocytosis of 12.7, normal platelets. Normal coagulation studies. Normal electrolytes and normal renal function panel. Normal glucose. Patient was given a dose of Lovenox for high suspicion for DVT. Patient will be signed out to oncoming physician at 7:00 a.m. pending ultrasound arrival and DVT study. Likely DC home after results. <Timmy Rdz MD - Last Filed: 05/12/24 07:21> 73-year-old male with history of mental retardation, debility with wheelchair-bound status. Presents with right lower extremity pain and swelling which was atraumatic. Denies any falls or injuries. He has marked swelling and edema of his right leg compared to his left. No history of DVT or PE. He has 2+ palpable pulses, warm extremity, no overlying skin changes aside from some mild redness. No signs of cellulitis or tissue infection. No evidence of trauma. Suspicion presently is for potential thromboembolic event such as DVT, asymmetric lymphedema, dependent edema are less likely. He has no risk factors for heart failure and does not have any asymmetric swelling on the left side during the other symptoms such as chest pain, shortness a breath, fever or chills. Ultrasound is currently not available in the building, CBC, CMP, PT, PTT labs were ordered to assess. Discussed with the caregiver at bedside nauseous going forward which include administration of Lovenox and returning to get outpatient ultrasound, waiting till the morning for ultrasound did show up at 7:00 a.m., admission to the hospital for observation and ultrasound imaging. Will evaluate after labs. Laboratory studies show some mild leukocytosis of 12.7, normal platelets. Normal coagulation studies. Normal electrolytes and normal renal function panel. Normal glucose. Patient was given a dose of Lovenox for high suspicion for DVT. Patient will be signed out to oncoming physician at 7:00 a.m. pending ultrasound arrival and DVT study. Likely DC home after results. I was told by the previous ED physician that if the venous Doppler came back negative, patient need to be discharged home on antibiotic for possible cellulitis. Venous Doppler is negative Discharged on Keflex 500 QID for 10 days. <Herve Tapia MD - Last Filed: 05/10/24 08:29> Lab Data Result diagrams: 05/10/24 03:16 05/10/24 03:16 <Timmy Rdz MD - Last Filed: 05/12/24 07:21> Labs: Lab Results 05/10/24 Range/Units 03:16 WBC 12.7 H (4.5-10.0) K/mm3 RBC 3.41 L (4.6-6.20) M/mm3 Hgb 10.6 L (14.0-18.0) g/dL Hct 33.4 L (42.0-52.0) % MCV 97.9 (80-100) fl MCH 31.1 (26-34) pg MCHC 31.7 L (32-36) g/dl RDW 15.3 H (11.5-14.5) % Plt Count 381 H (150-375) k/mm3 MPV 9.0 (7.4-10.4) fl Immature Gran % (Auto) 0.9 H (0-0.5) % Neut % (Auto) 74.2 H (45.5-73.1) % Lymph % (Auto) 14.4 L (18.3-44.2) % Rawlins % (Auto) 8.5 (2.6-8.5) % Eos % (Auto) 1.7 (0-4.4) % Baso % (Auto) 0.3 (0.2-1.2) % Lymph # (Auto) 1.82 (0.9-3.2) K/mm3 Rawlins # (Auto) 1.1 H (0.1-0.6) K/mm3 Eos # (Auto) 0.2 (0-0.3) K/mm3 Baso # (Auto) 0.0 (0.0-0.1) K/mm3 Abs Immat Gran (auto) 0.11 H (0.00-0.031) K/mm3 Absolute Neuts (auto) 9.4 H (1.3-6.7) K/mm3 Absolute Nucleated RBC 0.000 (0.0-0.012) K/mm3 Nucleated RBC % 0.0 (0.0-0.2) % PT 13.7 (11.1-14.7) Seconds INR 1.0 APTT 30.9 (22.3-36.8) Seconds Sodium 143 (137-145) mmol/L Potassium 4.0 (3.4-5.0) mmol/L Chloride 107 (98-107) mmol/L Carbon Dioxide 28 (22-30) mmol/L Anion Gap 8 (4-12) mmol/L BUN 22 H (9-20) mg/dL Creatinine 0.94 (0.7-1.3) mg/dL Estim Creat Clear Calc 62 ml/min Estimated GFR > 60 (59 - ) Glucose 122 H (65-110) mg/dL Calcium 9.1 (8.4-10.2) mg/dL <Timmy Rdz MD - Last Filed: 05/12/24 07:21> Lab Results 05/10/24 Range/Units 03:16 WBC 12.7 H (4.5-10.0) K/mm3 RBC 3.41 L (4.6-6.20) M/mm3 Hgb 10.6 L (14.0-18.0) g/dL Hct 33.4 L (42.0-52.0) % MCV 97.9 (80-100) fl MCH 31.1 (26-34) pg MCHC 31.7 L (32-36) g/dl RDW 15.3 H (11.5-14.5) % Plt Count 381 H (150-375) k/mm3 MPV 9.0 (7.4-10.4) fl Immature Gran % (Auto) 0.9 H (0-0.5) % Neut % (Auto) 74.2 H (45.5-73.1) % Lymph % (Auto) 14.4 L (18.3-44.2) % Rawlins % (Auto) 8.5 (2.6-8.5) % Eos % (Auto) 1.7 (0-4.4) % Baso % (Auto) 0.3 (0.2-1.2) % Lymph # (Auto) 1.82 (0.9-3.2) K/mm3 Rawlins # (Auto) 1.1 H (0.1-0.6) K/mm3 Eos # (Auto) 0.2 (0-0.3) K/mm3 Baso # (Auto) 0.0 (0.0-0.1) K/mm3 Abs Immat Gran (auto) 0.11 H (0.00-0.031) K/mm3 Absolute Neuts (auto) 9.4 H (1.3-6.7) K/mm3 Absolute Nucleated RBC 0.000 (0.0-0.012) K/mm3 Nucleated RBC % 0.0 (0.0-0.2) % PT 13.7 (11.1-14.7) Seconds INR 1.0 APTT 30.9 (22.3-36.8) Seconds Sodium 143 (137-145) mmol/L Potassium 4.0 (3.4-5.0) mmol/L Chloride 107 (98-107) mmol/L Carbon Dioxide 28 (22-30) mmol/L Anion Gap 8 (4-12) mmol/L BUN 22 H (9-20) mg/dL Creatinine 0.94 (0.7-1.3) mg/dL Estim Creat Clear Calc 62 ml/min Estimated GFR > 60 (59 - ) Glucose 122 H (65-110) mg/dL Calcium 9.1 (8.4-10.2) mg/dL <Herve Tapia MD - Last Filed: 05/10/24 08:29> Imaging Data Radiologist's impression: Impressions Venous Doppler Study 05/10/24 07:36 Impression: No evidence of deep vein thrombosis involving the right lower extremity. <Herve Tapia MD - Last Filed: 05/10/24 08:29> Discharge Plan Discharge Clinical Impression: Localized swelling of right lower extremity, Dependence on wheelchair <Timmy Rdz MD - Last Filed: 05/12/24 07:21> Patient Disposition: NH [facility]/Asst Living <Timmy Rdz MD - Last Filed: 05/12/24 07:21> Condition: Stable <Timmy Rdz MD - Last Filed: 05/12/24 07:21> Instructions: Antibiotic Form, Leg Edema (ED) <Timmy Rdz MD - Last Filed: 05/12/24 07:21> Additional Instructions: Return if symptoms are worsening , call your family physician for appointment, take Tylenol as as needed for aches and pain, continue home medications., keep leg elevated <Timmy Rdz MD - Last Filed: 05/12/24 07:21> Patient Language: Estonian <Timmy Rdz MD - Last Filed: 05/12/24 07:21> Prescriptions: New cephalexin 500 mg capsule 500 mg PO Q8H Qty: 21 0RF cephalexin 500 mg capsule 500 mg PO Q6H 10 Days Qty: 40 0RF cephalexin 500 mg capsule 500 mg PO Q6H 10 Days Qty: 40 0RF cephalexin 500 mg capsule 500 mg PO Q6H 10 Days Qty: 40 0RF Discontinued cephalexin 500 mg capsule 500 mg PO Q12H 7 Days Qty: 14 0RF No Action amlodipine 10 mg tablet 10 mg PO DAILY Antacid Extra-Strength 300 mg (750 mg) tablet,chewable 300 mg PO BID bacitracin 500 unit/gram ointment 1 applic topical TID diphenhydramine HCl [Banophen] 25 mg tablet 25 mg PO QHS PRN carbamazepine 200 mg tablet 200 mg PO Q12H ferrous sulfate 325 mg (65 mg iron) tablet 325 mg PO DAILY folic acid 1 mg tablet 1 mg PO DAILY hydrocortisone 1 % cream 1 applic topical BID PRN ibuprofen 400 mg tablet 400 mg PO TID lisinopril 5 mg tablet 5 mg PO DAILY rasagiline 1 mg tablet 1 mg PO DAILY Robafen DM 5-50 mg/5 mL liquid 20 ml PO Q4-6H PRN simvastatin 20 mg tablet 20 mg PO DAILY ascorbic acid (vitamin C) 500 mg capsule PO vitamin E (dl, acetate) 180 mg (400 unit) capsule 180 mg PO DAILY acetaminophen 325 mg capsule 650 mg PO Q6H PRN (Reason: fever or pain) 30 Days Qty: 120 0RF ibuprofen 600 mg tablet 600 mg PO Q8H PRN (Reason: fever or pain) 30 Days Qty: 90 0RF cephalexin 500 mg capsule 500 mg PO Q6H 7 Days Qty: 28 0RF <Timmy Rdz MD - Last Filed: 05/12/24 07:21> Follow-up/Referrals: Hamlet,Burak Biswas MD [Primary Care Provider] - <Timmy Rdz MD - Last Filed: 05/12/24 07:21>
--- OUTSIDE RECORDS SUMMARY | 2024-05-10 02:34 | XMS_ITS | Encounter Summary ---
Author Organization [facility] Address [address] [place] [place] [address] Phone Care Team Providers Care Window Sash Installer Name Role Phone Mariya Mcnair PAC Primary Care Pro vider Essence Wallace OPERATING ROOM ASSISTANT, HIGH SCHOOL LIBRARY MEDIA SPECIALIST Unavailable + [phone] Sourav Hamm MD Unavailable +[phone] Reason for Visit * Reason Onset Date Comments Home Health Admission 04/15/2023 Encounter Details Date Type Department Care Team (Late st Contact Info) Description 04/15/2023 Telephone [facility] [address] [place] [address] Zunilda Up, PT [place] Home Health Admission [...] on file Legal Sex Male 10:29 AM RN IMAGING Gender Identity Not on file Sexual Orientation Not on file documented as of this encounter Miscellaneous Notes * Telephone Encounter - Zunilda Up, PT - 04/15/2023 4:10 PM CST Patient was admitted to home health on this date. Will you please follow and sign orders for PT/OT? Please advise. IMAGING documented in this encounter Plan of Treatment Upcoming Encounters Date Type Department Care Team (Late st Contact Info) Description 06/15/2024 1:45 PM CDT Office Visit [facility] Medical [facility] - Internal Medicine - [place] [address] [place] [id number] Mariya Mcnair, PAC [address] [place] [address] 02/23/2025 10:00 AM RN IMAGING Office Visit [facility] [address] [facility] [place] [address] Essence Wallace APRN, HIGH SCHOOL LIBRARY MEDIA SPECIALIST [address] [place] [address] documented as of this encounter Visit Diagnoses Not on filedocumented in this encounter Care Teams Window Sash Installer Relationship Specialty Start Date End Date Mariya Mcnair, PAC [address] [place] [address] PCP - General Physician Sweater Designer 02/26/23 Essence Wallace APRN, HIGH SCHOOL LIBRARY MEDIA SPECIALIST [address] [place] [address] Nurse Practitioner Advanced Practice Nurse 05/26/23 Sourav Hamm MD [address] [place] [address] Consulting Physician Neurology 02/25/24 documented as of this encounter
--- OUTSIDE RECORDS SUMMARY | 2024-05-10 02:34 | XMS_ITS | Clinical Summary ---
Author Organization [facility] Address [address] [place] [address] Care Team Providers Care Media Production Operator Name Role Phone Mariya Mcnair Primary Care Pro vider Essence Wallace APRN, DESIGNATED BROKER Unavailable [phone] Sourav Hamm MD Unavailable Allergies No known active allergies Medications amLODIPine [...] mg by mouth 4 times daily. RX [id number] Active carBAMazepine (TEGretol) 200 MG Tablet Take 1.5 Tablets by mouth 2 times daily. 360 Tablet 1 4 Active Active Problems Problem Noted Date Diagnosed Date Iron deficiency anemia 02/23/2023 Other hyperlipidemia 02/23/2023 Intellectual disability 02/23/2023 Parkinson disease 02/23/2023 Seizures 02/23/2023 Primary hypertension 02/23/2023 Osteoporosis 02/23/2023 Encounters Date Type Department Care Team Description 02/25/2024 10:00 AM STRINGER MACHINE TENDER Office Visit [facility] Neu[facility] [address] [place] [address] Sourav Hamm MD Seizures (HCC) [...] on file Legal Sex Male 10:29 AM STRINGER MACHINE TENDER Gender Identity Not on file Sexual Orientation Not on file Last Filed Vital Signs Vital Sign Reading Time Taken Comments Blood Pressure 128/78 02/25/2024 10:14 AM STRINGER MACHINE TENDER Pulse 67 02/25/2024 10:14 AM STRINGER MACHINE TENDER Temperature 36.4 C (97.5 F) 02/25/2024 10:14 AM STRINGER MACHINE TENDER Respiratory Rate 16 02/25/2024 10:14 AM STRINGER MACHINE TENDER Oxygen Saturation 100% 02/25/2024 10:14 AM STRINGER MACHINE TENDER Inhaled Oxygen Concentration - - Weight 84.4 kg (186 lb) 02/25/2024 10:14 AM STRINGER MACHINE TENDER Height 172.7 cm (5' 8 ) 02/25/2024 10:14 AM STRINGER MACHINE TENDER Body Mass Index 28.28 02/25/2024 10:14 AM STRINGER MACHINE TENDER Plan of Treatment Upcoming Encounters Date Type Department Care Team (Late st Contact Info) Description 06/15/2024 1:45 PM CDT Office Visit [facility] - Internal Medicine - [place] [address] [place] [address] Mariya Mcnair, PAC [address] [place] [address] 02/23/2025 10:00 AM STRINGER MACHINE TENDER Office Visit [facility] - Neurology - [place] [address] [place] [address] Essence Wallace, HAND MOLDER AND CASTER, DESIGNATED BROKER [address] [place] [address] Health Maintenance Due Date Last Done Comments [...] Diagnosis Comments PSA SCREEN 04/05/2024 12:00 AM STRINGER MACHINE TENDER PSA FREE & TOTAL 04/05/2024 12:0 0 AM STRINGER MACHINE TENDER LIPID PANEL 04/05/2024 12:00 AM STRINGER MACHINE TENDER THYROID STIMULATING HORMONE (TSH) 04/05/2024 12:00 AM STRINGER MACHINE TENDER CMP (COMPREHENSIVE METABOLIC PANEL) 04/05/2024 12:00 AM STRINGER MACHINE TENDER COMPLETE BLOOD COUNT (CBC) WITH DIFF 04/05/2024 12:00 AM STRINGER MACHINE TENDER COLOGUARD Routine 03/05/2023 8:10 AM STRINGER MACHINE TENDER Screening for colon cancer from Last 3 Months or Most Recently Relevant to Health Maintenance Results * THYROID STIMULATING HORMONE (TSH) (04/05/2024 12:00 AM STRINGER MACHINE TENDER) 04/05/2024 us Provider Scan CHEMISTRY ORDERABLES Final Resul t SCAN * PSA FREE & TOTAL (04/05/2024 12:00 AM STRINGER MACHINE TENDER) Prostatic Specific Antigen, Free 1.8 SCAN 04/05/2024 us Provider Scan CHEMISTRY ORDERABLES Final Resul t SCAN * PSA SCREEN (04/05/2024 12:00 AM STRINGER MACHINE TENDER) PSA SCREEN, TOTAL 1.8 SCAN 04/05/2024 us Provider Scan CHEMISTRY ORDERABLES Final Resul t Performing Organization Address City/[facility] Co de Phone Number SCAN * LIPID PANEL (04/05/2024 12:00 AM STRINGER MACHINE TENDER) [facility] CHOLESTEROL 134 SCAN HDL CHOLESTEROL 53 SCAN LDL 66 SCAN 04/05/2024 us Provider Scan CHEMISTRY ORDERABLES Final Resul t Performing Organization Address City/[facility]/ZIP Co de Phone Number SCAN * CMP (COMPREHENSIVE METABOLIC PANEL) (04/05/2024 12:00 AM STRINGER MACHINE TENDER) 04/05/2024 us Provider Scan CHEMISTRY ORDERABLES Final Resul t SCAN * COMPLETE BLOOD COUNT (CBC) WITH DIFF (04/05/2024 12:00 AM STRINGER MACHINE TENDER) 04/05/2024 us Provider Scan HEMATOLOGY ORDERABLES Final Resu lt Performing Organization Address [facility] Co de Phone Number SCAN * COLOGUARD (03/05/2023 8:10 AM STRINGER MACHINE TENDER) [facility] Cologuard Negative Negative [facility] [...] Kraft. ryan al, N Engl J Med 2014;370(14):6483-1777) The normal value (reference range) for this assay is negative. COLOGUARD RE-SCREENING RECOMMENDATION: Periodic colorectal cancer screening is an important part of preventive healthcare for asymptomatic individuals at average risk for colorectal cancer. Following a negative Cologuard result, the [place] [employer] Society and U.S. Multi-Society Task Force screening guidelines recommend a Cologuard re-screening interval of 3 years. References: [place] [employer] Guideline for Colorectal Cancer Screening: https://www.cancer.org/cancer/kvwis-lukdnt-psytqc/gyuzulbye-jnqyvueuz-hweyuab/ acs-recommendations.html.; Manjinder CURIEL, Sandy BONILLA, Fabrizio BettencourtK, Colorectal Cancer Screening: Recommendations for Physicians and Patients from the U.S. Multi-Society Task Force on Colorectal Cancer Screening , Am J Gastroenterology 2017; 112:5329-6623. TEST DESCRIPTION: Composite algorithmic analysis of stool [...] colonoscopy. (Melanie Hyde, N Engl J Med 2014;370(14):8501-9243.) Cologuard may produce a false negative or false positive result (no colorectal cancer or precancerous polyp present at colonoscopy follow up). A negative Cologuard test result does not guarantee the absence of CRC or advanced adenoma (pre-cancer). The current Cologuard screening interval is every 3 years. ([place] [employer] and U.S. Multi-Society Task Force). Cologuard performance data in a 10,000 patient pivotal study using colonoscopy as the reference method can be accessed at the following location: www.[employer]/results. Additional description of the Cologuard test process, warnings and precautions can be found at www.cologuard.com. Stool 03/05/2023 8:10 AM STRINGER MACHINE TENDER 03/07/2023 3:15 PM STRINGER MACHINE TENDER Mariya Mcnair PAC BODY FLUIDS & STO OLS ORDERABLES Final Result [employer], [facility] [address] [place] [address], [employer] [address] [place] [address] from Last 3 Months or Most Recently Relevant to Health Maintenance Insurance [place] Advance Directives Documents on File Type Date Recorded Patient Sports Physical Therapist Expl anation Power of School Office Manager for Health Care 05/04/2023 8:17 AM POA-HC, 07/14/2022 * Full Code (Latest Code Status on File) Date Activated Date Inactivated Comments 04/26/2023 10:52 AM Care Teams Media Production Operator Relationship Specialty Start Date End Date Mariya Mcnair, [place] [address] [place] [address] PCP - General Physician Sales Host 02/26/23 Essence Wallace, HAND MOLDER AND CASTER, DESIGNATED BROKER [address] [place] [address] Nurse Practitioner Advanced Practice Nurse 05/26/23 Sourav Hamm MD [address] [place] [address] Consulting Physician Neurology 02/25/24
--- OUTSIDE RECORDS SUMMARY | 2024-05-10 02:34 | XMS_ITS | Encounter Summary ---
Author Organization [facility] Address [address] [place] [address] Phone Care Team Providers Care Pathology Laboratory Aide Name Role Phone Mariya Mcnair PAC Primary Care Pro vider Essence Wallace APRN, EVS TECH Unavailable + [phone] Sourav Hamm MD Unavailable [phone] Reason for Visit * Reason Onset Date Comments Need Order 05/07/2023 Encounter Details Date Type Department Care Team (Late st Contact Info) Description 05/07[facility]2023 [facility] [address] [place] [address] Zunilda Up, PT [place] Need Order Social History Tobacco Use Types Packs/Day Years Used Date Smoking Tobacco: Never Smokeless Tobacco: Never Alcohol Use Standard Drinks/Week Comments Not Currently 0 (1 standard drink = 0.6 oz pur e alcohol) Sexually Active Control Partners Comments Not Currently Sex and Gender Information Value Date Recorded Sex Assigned at Not on file 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 Could you please email an order to Neela Montiel (housekeeping worker) for a sit to stand. Email: Neela Mahan < > She said she would be able to get this for him with an order, thank you Zunilda Up PT [phone] Thank you. Contact me with any questions. 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 Neurology [facility] [address] [place] [id number] Essence Wallace APRN, EVS TECH [address] [place] [address] documented as of this encounter Visit Diagnoses Not on filedocumented in this encounter Care Teams Pathology Laboratory Aide Relationship Specialty Start Date End Date Mariya Mcnair, PAC [address] [place] [address] PCP - General Physician Tree Expert 02/26/23 Essence Wallace APRN, EVS TECH [facility] [place] [place] [address] Nurse Practitioner Advanced Practice Nurse 05/26/23 Sourav Hamm MD [facility] [place] [id number] Consulting Physician Neurology 02/25/24 documented as of this encounter
[2024-05-10 03:24] LABS: Basophils Percent Auto 0.3 % (0.2-1.2); Eosinophils Absolute Auto 0.2 K/mm3 (0-0.3); Eosinophils Percent Auto 1.7 % (0-4.4); Hematocrit 33.4 % (42.0-52.0); Hemoglobin 10.6 g/dL (14.0-18.0); Immature Granulocyte Absolute 0.11 K/mm3 (0.00-0.031); Immature Granulocyte Percent A 0.9 % (0-0.5); Lymphocytes Absolute Auto 1.82 K/mm3 (0.9-3.2); Lymphocytes Percent Auto 14.4 % (18.3-44.2); Mean Corpuscular HGB Conc 31.7 g/dl (32-36); Mean Corpuscular Hemoglobin 31.1 pg (26-34); Mean Corpuscular Volume 97.9 fl (80-100); Monocytes Absolute Auto 1.1 K/mm3 (0.1-0.6); Monocytes Percent Auto 8.5 % (2.6-8.5); Neutrophils Absolute Auto 9.4 K/mm3 (1.3-6.7); Neutrophils Percent Auto 74.2 % (45.5-73.1); Platelet Count Result 381 k/mm3 (150-375); Red Blood Count 3.41 M/mm3 (4.6-6.20); Red Cell Distribution Width 15.3 % (11.5-14.5); White Blood Count 12.7 K/mm3 (4.5-10.0)
[2024-05-10 03:37] LABS: Partial Thromboplastin Time 30.9 Seconds (22.3-36.8); Prothrombin Time 13.7 Seconds (11.1-14.7)
[2024-05-10 03:38] LABS: Anion Gap 8 mmol/L (4-12); Blood Urea Nitrogen 22 mg/dL (9-20); Calcium 9.1 mg/dL (8.4-10.2); Carbon Dioxide 28 mmol/L (22-30); Chloride 107 mmol/L (98-107); Estimated CRCL calculation 62 ml/min; Estimated Glomerular Filt Rate > 60; Glucose 122 mg/dL (65-110); Sodium 143 mmol/L (137-145)
[2024-05-10] MEDS: ENOXAPARIN 80 MG/0.8 ML SYRINGE 75 MG SUB-Q (04:20)
== END 2024-05-10 08:28 ==
PROVIDERS: Student in an Organized Health Care Education/Training Program; Emergency Provider Emergency Medicine; PCP Internal Medicine
DX: R22.41 Localized swelling, mass and lump, right lower limb (principal); Z99.3 Dependence on wheelchair; F79 Unspecified intellectual disabilities
CPT/HCPCS: 36415; 80048; 85025; 85610; 85730; 93971; 96372; 99284; J1650